=== PATIENT | female | born 1950 | race Two or more races ===

== ENCOUNTER 2017-12-07 00:06 | Emergency (ER) | payer OTHER ==
--- NOTE | 2017-12-07 00:30 | EDPHY ---
General - History Smoking Status: Never smoked Time Seen by Provider: 12/07/17 00:24 Narrative: CHIEF COMPLAINT: M1 HISTORY OF PRESENT ILLNESS: Patient presents by EMS with reports of M1 hold. M1 documents that the patient has a history of delusional disorder and presented to them tonight with swelling of the feet and complaining that the government was causing the burning , pain and swelling in her feet. She also reportedly upcoming her legs full will to prevent this. Patient denies any this. She does complain of pain, redness and swelling the lower feet. It has been present for a month. It was worse earlier today and has now significantly improved. Worse with ambulation weight-bearing. Minimal improvement rest. No other associated complaints or modifying factors PSYCHIATRIC DIAGNOSES: Delusional disorder per chart review. Patient denies any diagnoses PRIOR PSYCHIATRIC EVALUATIONS: Unknown M1/DETAINER: Crisis Center just prior to arrival today REVIEW OF SYSTEMS: Ten systems reviewed and are negative unless otherwise noted in the HPI EXAMINATION General Appearance: Alert, no distress. Well-developed well-nourished. Head: normocephalic, atraumatic Eyes: Pupils equal and round, no conjunctival pallor or injection ENT, Mouth: Mucous membranes moist Neck: Normal inspection, supple, non-tender Respiratory: Lungs are clear to auscultation. No wheeze, rhonchi or crackles Cardiovascular: Regular rate and rhythm. No murmur Gastrointestinal: Abdomen is soft and nontender Back: non-tender, no bony abnormalities Neurological: GCS 15. A&O, nonfocal, normal gait. Strength is symmetric in all 4 limbs with no pronator drift. Normal [id number]. Skin: Warm and dry. Very mild erythema of the lower extremities. No warmth. No purulence, crepitus or necrosis. Extremities: Mild tenderness of the lower extremities with symmetric 1+ pitting edema to both lower extremities. Psychiatric: Flat affect. Denies suicidal ideation. DIFFERENTIAL DIAGNOSES: Including but not limited to delirium, delusional disorder, schizoaffective, schizophrenia, DVT, peripheral edema, cellulitis, PVD, venous stasis MDM: 12:10 a.m. M1 hold due to paranoid delusions with patient complained of lower extremity pain and swelling. The patient reportedly has history of delusion and delirium , thus we will work her up for possible UTI infection lower extremities. I have also ordered ultrasound lower extremities. At this time she has no complaints of pain. She is awake and alert without any encephalopathy, altered mentation or delirium present. I have discussed the case with Dr. Conti 12:50 a.m. Urinalysis revealed no signs of infection. Toxicology is negative with a pending ETOH level. 1:20 a.m. DVT studies are negative bilaterally. There is no signs of infection to me clinically or by her laboratory studies. Patient is medically cleared for evaluation. 1:45 a.m. Notified by RN that the patient is actually establish with TLC, thus she will not be evaluated until they return in the morning. At this time I have discussed the case with Dr. Conti, and she will assume care the patient. Please see her note for final disposition. The patient is resting comfortably at this time. SUPERVISION: Patient was independently examined, but I discussed the case with my secondary supervising physician Dr. Conti (Esau Lindquist) PHYSICIAN DOCUMENTATION: The patient was evaluated and managed by the Physician Transplant Surgeon. My co- signature indicates that I have reviewed this chart and I agree with the findings and plan of care as documented. I am the secondary supervising physician. (Sivan Conti) I assumed care of the patient at 0700. The patient was evaluated by Mental Health in the field the patient does not meet criteria for 72 hr hold. She is not delusional. She is having some stress and anxiety surrounding chronic pain and edema. The patient is referred to our on-call consulting utility forester for further evaluation of her leg edema. The patient's mental health hold was vacated the recommendation of the psychiatrist and I concur with this decision. (Oleg Teran) Medical Decision Makin:00 a.m.- The patient has been stable throughout my shift. She is awaiting mental health evaluation by the [facility] group this morning. I anticipate the case will be signed out to Dr. Teran at change of shift at 7:00 a.m.. (Sivan Conti) - Diagnostics Imaging Results: Imaging Impressions Extremity Venous Study 12/07/17 00:24 Impression: No evidence of deep vein thrombosis in either lower extremity. The study was performed as an emergency on-call case and discussed by telephone with Dr. Conti at 0120 hours. The final interpretation is concordant with the original communication. - Objective Vital Signs: Initial Vital Signs Heart Rate 65 12/07/17 00:09 Respiratory Rate 16 12/07/17 00:09 Blood Pressure 119/77 12/07/17 00:09 O2 Sat (%) 98 12/07/17 00:09 O2 Delivery Mode Room Air Allergies/Adverse Reactions: No Known Allergies Allergy (Unverified 12/07/17 00:11) Home Medications: Medication Instructions Recorded NK [No Known Home Meds] 12/07/17 Synthroid 12/07/17 Laboratory Results: Laboratory Results 12/07/17 00:32 12/07/17 00:32 12/07/17 12/07/17 12/07/17 00:32 00:32 00:30 WBC 7.17 10^3/uL 10^3/uL (3.80-9.50) RBC 5.49 10^6/uL H 10^6/uL (4.18-5.33) Hgb 11.3 g/dL L g/dL (12.6-16.3) Hct 36.0 % L % (38.0-47.0) MCV 65.6 fL L fL (81.5-99.8) MCH 20.6 pg L pg (27.9-34.1) MCHC 31.4 g/dL L g/dL (32.4-36.7) RDW 18.3 % H % (11.5-15.2) Plt Count 263 10^3/uL 10^3/uL (150-400) MPV 9.8 fL fL (8.7-11.7) Neut % (Auto) 47.6 % % (39.3-74.2) Lymph % (Auto) 39.3 % % (15.0-45.0) [place] % (Auto) 10.7 % % (4.5-13.0) Eos % (Auto) 1.4 % % (0.6-7.6) Baso % (Auto) 0.7 % % (0.3-1.7) Nucleat RBC Rel Count 0.0 % % (0.0-0.2) Absolute Neuts (auto) 3.41 10^3/uL 10^3/uL (1.70-6.50) Absolute Lymphs (auto) 2.82 10^3/uL 10^3/uL (1.00-3.00) Absolute Monos (auto) 0.77 10^3/uL 10^3/uL (0.30-0.80) Absolute Eos (auto) 0.10 10^3/uL 10^3/uL (0.03-0.40) Absolute Basos (auto) 0.05 10^3/uL 10^3/uL (0.02-0.10) Absolute Nucleated RBC 0.00 10^3/uL 10^3/uL (0-0.01) Immature Gran % 0.3 % % (0.0-1.1) Immature Gran # 0.02 10^3/uL 10^3/uL (0.00-0.10) Platelet Estimate ADEQUATE (ADEQ) Polychromasia 1+ H Hypochromasia 1+ H Target Cells 1+ H Elliptocytes 1+ H Smear Review By Pending ESR 20 MM/HR MM/HR (0-30) Sodium 141 mEq/L mEq/L (135-145) Potassium 3.6 mEq/L mEq/L (3.3-5.0) Chloride 107 mEq/L mEq/L (97-110) Carbon Dioxide 28 mEq/l mEq/l (22-31) Anion Gap 6 mEq/L L mEq/L (8-16) BUN 16 mg/dL mg/dL (7-23) Creatinine 0.7 mg/dL mg/dL (0.6-1.0) Estimated GFR > 60 Glucose 100 mg/dL mg/dL (70-100) Calcium 8.4 mg/dL L mg/dL (8.5-10.4) C-Reactive Protein < 5.0 mg/L mg/L (<10.0) Urine Color YELLOW Urine Appearance CLEAR Urine pH 7.0 (5.0-7.5) Ur Specific [place] 1.013 (1.002-1.030) Urine Protein NEGATIVE (NEGATIVE) Urine Ketones NEGATIVE (NEGATIVE) Urine Blood NEGATIVE (NEGATIVE) Urine Nitrate NEGATIVE (NEGATIVE) Urine Bilirubin NEGATIVE (NEGATIVE) Urine Urobilinogen NEGATIVE EU EU (0.2-1.0) Ur Leukocyte Esterase NEGATIVE (NEGATIVE) Urine RBC 1-3 /hpf /hpf (0-3) Urine WBC 1-3 /hpf /hpf (0-3) Ur Epithelial Cells TRACE /lpf /lpf (NONE-1+) Urine Mucus TRACE /lpf /lpf (NONE-1+) Urine Glucose NEGATIVE (NEGATIVE) Urine Opiates Screen NEGATIVE (NEGATIVE) Urine Barbiturates NEGATIVE (NEGATIVE) Ur Phencyclidine Scrn NEGATIVE (NEGATIVE) Ur Amphetamine Screen NEGATIVE (NEGATIVE) U Benzodiazepines Scrn NEGATIVE (NEGATIVE) Urine Cocaine Screen NEGATIVE (NEGATIVE) U Marijuana (THC) Screen NEGATIVE (NEGATIVE) Ethyl Alcohol < 10 mg/dL mg/dL (0-10) Departure - Departure Disposition: Home, Routine, Self-Care Clinical Impression: Delusional disorder, Peripheral edema Condition: Good Instructions: Leg Edema (ED) Additional Instructions: 1. You have been given the number of our consulting utility forester if you desire a 2nd opinion further workup surrounding year leg edema. 2. Please discuss with your primary care provider different options for pain management. Referrals: Car Melgar MD [Medical Doctor] - As per Instructions
[2017-12-07 00:56] LABS: PLATELET COUNT 263 10^3/uL (150-400)
[2017-12-07 12:15] VITALS: BP 112/64
--- NOTE | 2017-12-07 12:52 | ASMTCMCOM ---
CM Note CM Note Notes: Asked to see pt by NEHEMIAS Arce, TLC coordinator and NEHEMIAS Rodriguez. Reviewed chart. Met with pt for approximately 45 minutes. Discussed at length pt's current concerns, reason for Emergency Department visit, etc. Pt reports struggling with a recent onset of pain, tingling, burning, swelling, discoloration and numbness in her bilateral lower extremities. In addition, pt states she has recently started to have severe back and intermittent rectal/vaginal pain. The pt reports seeing her PCP - Dr. Nieves with [facility] in [place] about a month ago for these complaints. She states her PCP prescribed "water pills, but they haven't really helped." The pt developed a severe onset of these symptoms yesterday (Saturday12/06/17), which lasted greater than six hrs. She states "the pain became so severe she called a help line asking for advice on what to do." She was referred to the [facility] located at [address] [place] [address] after stating that she "couldn't go on living if the pain didn't improve." At the [facility] she was evaluated and was determined to be hallucinating. She was placed on an M1 hold and was brought to the Emergency Department for her delusions. She states that her "pain was so severe she became delusional." She "recalls telling the help line she didn't want to live anymore and she recalls telling the gentleman at the Crisis Center that she thought the government was doing this to her." She states she "does not really believe these things to be true" and she denies suicidal ideation. She states her pain was "the worst she has ever experienced." The pt reports having dual PHD degrees. 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 She has a daughter, Bell, who is working on her post doc in Psychology at the [employer] in [place]. Her dghtr has a one year old, is and lives in [place]. The pt states she is single, . She is from [place]. The pt requests help for her severe pain. She also requests "counseling resources to help her deal with the pain, so she doesn't feel so desperate when the pain becomes severe." Update provided to Michael Marks RN and Dr. Teran. Additonal referrals for follow-up requested. Encouraged pt to call/text her dghtr for additional support and assistance getting home. Pt texted dghtr. Pt states there was no answer when she called. Update provided to pt - pt to follow up with Dr. Melgar, Community Educator in [place]. Pt also encouraged to follow up with her PCP for referrals regarding her back and rectal pain. Yazmin with [facility] provided pt with counseling resources. Encouraged pt to continue to reach out to her dghtr for support. Offered to call dghtr on pt's behalf. Pt declined. Pt reports not having anyone to call for assistance with transportation to the [facility]. Cab voucher provided. CM available for any further issues or concerns. Date Signed: 12/07/2017 12:48 PM Electronically Signed By:Mirna Perales RN
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
--- NOTE | 2017-12-07 13:08 | ASMTTCLDSP ---
TLC Discharge Disposition Disposition: Answers: Discharge If Answers: Yes DISCHARGED: Patient/family given suicide hotline info & SAMHSA brochure? Disposition Notes: Notes: In consultation with Dr Oleg Teran pt did not meet the 27-65 criteria requiring in-pt psychiatric hospitalization as she is not gravely disabled or at imminent risk of self harm or harm to others. Discharge Concerns/Recommendations: Notes: ED MD did not believe this pt fit the criteria for an M-1 hold. Pt returned home with a medical referral for her swollen legs and counseling referrals to [facility] out-pt department Was patient given the Answers: Not applicable Inpatient Behavioral Health Prohibited Belongings List while in the ED? Psychiatrist vacating M1 Oleg Burnette Hold: Date and time M1 hold 12/07/2017 01:00 PM vacated (time format is hh:mm): Type of Hold: Answers: M1/72-hour Hold Hold initiated by: Answers: Other Notes: [facility] Date Signed: 12/07/2017 01:07 PM Electronically Signed By:Yazmin Schmid
== END 2017-12-07 12:15 | disposition home or self-care (01) ==
LOC: EEVIPCON 00:06
PROC: GZ11ZZZ Psychological Tests, Personality and Behavioral (ICD-10-PCS; principal; 2017-12-07)
DX: R60.0 Localized edema (principal); F22 Delusional disorders
CPT/HCPCS: 80305; G0480